=== PATIENT | female | born 1990 | race Caucasian/White ===

== ENCOUNTER 2020-09-05 07:30 | Inpatient (IN) | payer OTHER ==
[~2020-09-05] VITALS: Ht 162.6 cm; Wt 63.0 kg
[~2020-09-05 07:30] MED LIST: BUSPAR 10MG10 MG PO; BUSPIRONE HCL30 MG PO; CYCLOBENZAPRINE10 MG PO; LAMOTRIGINE ER100 MG PO; LATUDA20 MG PO; METHADONE HCL40 MG PO; METHOCARBAMOL750 MG PO; NAPROSYN500 MG PO; NORFLEX 100 MG100 MG PO; PRENATABS RX T1 EACH PO; TRAMADOL HCL50 MG PO; VISTARIL25 MG PO; WELLBUTRIN 75 M75 MG PO; WELLBUTRIN XL300 M1 PO; ZANTAC150 MG PO; ZYRTEC10 MG PO
[2020-09-05 10:43] LABS: BUN/CREATININE RATIO 22 (0-10)
[2020-09-05 11:22] LABS: HEMOGLOBIN 12.7 gm/dl (12.3-15.3); RED BLOOD COUNT 4.18 M/UL (4.00-5.10)
--- NOTE | 2020-09-05 18:06 | NUR ---
09/05/20 1800 LAUREN OSBORN AND HESHAM APPLIED
[2020-09-06 05:48] LABS: HEMOGLOBIN 9.5 gm/dl (12.3-15.3); RED BLOOD COUNT 3.03 M/UL (4.00-5.10); WHITE BLOOD COUNT 11.1 K/UL (4.5-11.0)
[2020-09-06 06:08] LABS: BUN/CREATININE RATIO 13 (0-10)
[2020-09-07 07:29] LABS: BUN/CREATININE RATIO 17 (0-10)
[2020-09-07 07:34] LABS: RED BLOOD COUNT 2.2 M/UL (4.00-5.10)
[2020-09-07 07:36] LABS: HEMOGLOBIN 6.6 gm/dl (12.3-15.3)
[2020-09-08 02:21] LABS: HEMOGLOBIN 7.9 gm/dl (12.3-15.3); WHITE BLOOD COUNT 5.9 K/UL (4.5-11.0)
[2020-09-08 02:24] LABS: RED BLOOD COUNT 2.49 M/UL (4.00-5.10)
[2020-09-08 02:43] LABS: BUN/CREATININE RATIO 14 (0-10)
[2020-09-09] MEDS ORDERED: ELIQUIS2.5 MG PO (09:15)
[2020-09-09] MEDS ORDERED: XANAX0.25 MG PO (09:15)
[2020-09-09] MEDS ORDERED: TRAMADOL HCL50 MG PO (09:15)
[2020-09-09] MEDS ORDERED: PERCOCET 7.5-31 EACH PO (09:15)
== END 2020-09-09 11:59 | disposition home or self-care (01) | DRG 481 ==
LOC: M/S 09:12 → ZOBSOF 09:12 → M/S 16:43
PROVIDERS: ADMIT Orthopaedic Surgery
PROC: 0QS706Z Reposition Left Upper Femur with Intramedullary Internal Fixation Device, Open Approach (ICD-10-PCS; principal; 2020-09-08)
PROC: 0QP704Z Removal of Internal Fixation Device from Left Upper Femur, Open Approach (ICD-10-PCS; 2020-09-08)
PROC: 30233N1 Transfusion of Nonautologous Red Blood Cells into Peripheral Vein, Percutaneous Approach (ICD-10-PCS; 2020-09-08)
DX: S72.22XA Displaced subtrochanteric fracture of left femur, initial encounter for closed fracture (principal); D62 Acute posthemorrhagic anemia; F41.9 Anxiety disorder, unspecified; F32.9 Major depressive disorder, single episode, unspecified
CPT/HCPCS: 36415; 36430; 71045; 73502; 76000; 80048; 84703; 85025; 85027; 86850; 86900; 86901; 86920; 97116-GP-CQ; 97162; 97530; 97530-GP-CQ; C1713; J0690; J1100; J1170; J1644; J1885; J2001; J2250; J2370; J2405; J2550; J2704; J2710; J2765; J3010; J7030; J7050; J7120; P9016

== ENCOUNTER 2021-05-29 16:20 | Emergency (ER) | payer OTHER ==
[~2021-05-29 16:20] MED LIST changes: +ELIQUIS2.5 MG PO; +PERCOCET 7.5-31 EACH PO; +XANAX0.25 MG PO
== END 2021-05-29 17:32 | disposition left against medical advice (07) ==
LOC: ER1 16:20
DX: Z53.21 Procedure and treatment not carried out due to patient leaving prior to being seen by health care provider (principal)

== ENCOUNTER 2021-05-30 02:48 | Emergency (ER) | payer OTHER | END 2021-05-30 15:22 | disposition short-term general hospital (02) | LOC: ER1 02:48 | PROVIDERS: Physician Assistant | DX: F32.A Depression, unspecified (principal); F41.9 Anxiety disorder, unspecified; F15.10 Other stimulant abuse, uncomplicated; Z20.822 Contact with and (suspected) exposure to COVID-19 | CPT/HCPCS: 80307; 99285; G0480; U0002 ==

== ENCOUNTER 2022-05-16 19:06 | Emergency (ER) | payer OTHER ==
[2022-05-16 20:05] LABS: HEMOGLOBIN 13.1 gm/dl (12.3-15.3); RED BLOOD COUNT 3.98 M/UL (4.00-5.10)
[2022-05-16 20:29] LABS: BUN/CREATININE RATIO 16 (0-10)
== END 2022-05-16 22:00 ==
LOC: ER1 19:06
PROVIDERS: Emergency Medicine
DX: S01.111A Laceration without foreign body of right eyelid and periocular area, initial encounter (principal); F10.129 Alcohol abuse with intoxication, unspecified; F17.200 Nicotine dependence, unspecified, uncomplicated; W22.8XXA Striking against or struck by other objects, initial encounter
CPT/HCPCS: 12011; 70450; 72125; 80053; 84703; 85025; 96372; 99284; G0480